=== PATIENT | female | born 1985 | race Caucasian/White ===

== ENCOUNTER → 2017-02-09 | Outpatient (CLI) | payer OTHER | END | disposition home or self-care (01) | LOC: GMAB 13:53 | PROVIDERS: ATTEND Family Medicine | DX: N30.00 Acute cystitis without hematuria (principal) ==

== ENCOUNTER → 2017-05-29 | Outpatient (CLI) | payer OTHER ==
--- NOTE | 2017-05-29 15:04 | RAD ---
EXAM DESCRIPTION: Foot,Left 3 Views CLINICAL HISTORY: 31 years, Female, LEFT FOOT PAIN COMPARISON: FINDINGS: No definite fracture or dislocation. On oblique frontal projection slight irregularity at the medial aspect of the proximal 1st phalange at the metatarsal phalangeal joint. This is probably degenerative change although this could represent subtle avulsion injury. Some mild soft tissue swelling over the dorsum of the foot. IMPRESSION: No definite fracture or dislocation. Some mild soft tissue swelling over the dorsum of the foot. Electronically signed by: Ryan Humphreys MD 05/29/2017 3:03 PM CDT
== END | disposition home or self-care (01) ==
LOC: RAD 11:04
PROVIDERS: ATTEND Family Medicine
DX: M79.672 Pain in left foot (principal)

== ENCOUNTER → 2020-07-23 | Outpatient (CLI) | payer BC | LOC: GMAF 16:43 | PROVIDERS: ATTEND Nurse Practitioner Family | DX: R30.0 Dysuria (principal) ==

== ENCOUNTER → 2020-10-18 | Outpatient (CLI) | payer BC | LOC: GMALS 16:36 | PROVIDERS: ATTEND Nurse Practitioner Acute Care | DX: R30.0 Dysuria (principal) ==